=== PATIENT | female | born 1990 | race Caucasian/White ===

== ENCOUNTER → 2019-07-04 | Outpatient (CLI) | payer BC ==
--- NOTE | 2019-07-04 09:17 | RAD ---
Exam: Right Upper Quadrant Ultrasound 07/04/2019 8:00 AM Indication: Elevated liver function tests Technique: Multiple realtime grayscale sonographic images were obtained over the abdomen. Static images were submitted for interpretation. Comparisons: None Findings: Visualized portions of the pancreas are unremarkable. The IVC is patent. The liver is normal in size measuring 16 cm longitudinally. There is a normal hepatic echotexture. No focal lesions are identified. The gallbladder is nondistended. There is no evidence for cholelithiasis. There is no wall thickening, or pericholecystic fluid. The common bile duct is within normal limits measuring 4 mm in diameter. The Right kidney is normal in size measuring 10.4cm. There is no evidence for mass, nephrolithiasis, or hydronephrosis No ascites is identified Impression: Unremarkable sonographic appearance of the right upper quadrant Electronically signed by: Chuy Washington MD (07/04/2019 9:14 AM) [id number]
== END | disposition home or self-care (01) ==
LOC: US 07:28
PROVIDERS: ATTEND Registered Nurse
DX: R74.8 Abnormal levels of other serum enzymes (principal)
CPT/HCPCS: 76705